=== PATIENT | male | born 1950 | race Caucasian/White ===

== ENCOUNTER 2018-06-26 07:53 | Day surgery (SDC) | payer OTHER ==
[2018-06-26 08:55] VITALS: TEMP 98.6
[2018-06-26] MEDS ORDERED: DIPRIVAN 20 ML VIAL IVP ONE (10:19)
[2018-06-26] MEDS ORDERED: VERSED ONE (10:19)
[2018-06-26 16:15] VITALS: BP 122/67
--- NOTE | 2018-06-27 10:08 | OP ---
INDICATIONS FOR PROCEDURE: 67-year-old gentleman presents for colonoscopy exam. He has a history of adenomatous polyps with high grade dysplasia. He had a polyp removed from the transverse colon in December 2014. He presents for followup examination. MEDICATIONS: SEE ANESTHESIA NOTES. PROCEDURE: COLONOSCOPY, SNARE POLYPECTOMY, ENDOCLIP THERAPY. REPORT: The risks, benefits, alternatives and limitations were discussed in detail with the patient. Informed consent was obtained. After adequate sedation was achieved, a digital rectal exam revealed good tone, no masses. The colonoscope was introduced into the rectum and advanced under direct visual guidance to the cecum. The cecum was identified by the appendiceal orifice and IC valve. In the cecum there is a 5 mm sessile polyp that I removed by snare technique. I then slowly withdrew the scope in a circumferential manner examining the mucosa quite carefully. I looked on the proximal and distal side of folds and flexures as best as possible. I was able to retroflex the scope in the right colon and the left colon to increase visualization. In the ascending colon there were four polyps. These range in size from 5 mm to 9 mm. They were semi sessile. I removed all four of these by snare technique. On the larger one I did close the polypectomy site with an endoclip. All polyps were retrieved. Withdrawing the scope further revealed scattered diverticulosis through the entire colon. The scope was retroflexed to look at the anal canal which was unremarkable. The prep was adequate. He had some mucusy adherent stool scattered throughout the colon especially in the right colon. I was able to wash and suction this off as best as possible. The withdrawal time was 12 minutes and 19 seconds. The patient tolerated the procedure well with stable vital signs and pulse oximetry throughout. IMPRESSION: 1. FIVE (5) POLYPS REMOVED ABOVE. 2. SCATTERED SINGH DIVERTICULOSIS. 3. NOT MENTIONED ABOVE, I DID SEE HIS LATASHA INK TATTOO SITES IN THE TRANSVERSE COLON WHICH WERE UNREMARKABLE. RECOMMENDATIONS: 1. High fiber diet. 2. Office visit as needed. 3. Await polyp pathology. If everything is benign as expected, recommend repeate colonoscopy examination again in three years, sooner if there are any signs or symptoms to indicate otherwise. cc: Dr. Gary BARKER
== END 2018-06-26 11:35 | disposition home or self-care (01) ==
LOC: SURG 07:53
PROVIDERS: ATTEND Internal Medicine Gastroenterology
DX: Z86.010 Personal history of colon polyps (principal); K57.90 Diverticulosis of intestine, part unspecified, without perforation or abscess without bleeding; D12.0 Benign neoplasm of cecum; D12.2 Benign neoplasm of ascending colon